=== PATIENT | male | born 1970 | race Caucasian/White ===

== ENCOUNTER 2016-11-25 11:56 | Emergency (ER) | payer MEDICAID ==
[2016-11-25 12:05] VITALS: RESP 18; TEMP 98.6
--- NOTE | 2016-11-25 13:42 | EDPHY ---
H & P Time Seen by Provider: 11/25/16 13:27 HPI/ROS: CHIEF COMPLAINT: toothache, 2 swelling HISTORY OF PRESENT ILLNESS: Patient is a 46-year-old male who presents to the emergency department with ongoing left lower tooth pain. He was seen at [facility] in told that he had a dental abscess. He was started on penicillin 5 days ago. The swelling has not improved. He was concerned so he came to the emergency department. No new pain. No fevers or chills. No difficulty swallowing. No shortness of breath. No neck stiffness. No trismus. REVIEW OF SYSTEMS: My complete review of systems is negative except as mentioned in the HPI. Past Medical/Surgical History: Denies Past surgical history: Denies Social history: Patient denies drugs. Smoking Status: Heavy smoker Physical Exam: 140/77, 87, 18, 93% on room air, 37. GENERAL: No acute distress, alert. HEENT: Eyes normal to inspection, normal pharynx, no signs of dehydration. Patient does have mild left lower mandible swelling. There is no fluctuance. No erythema or warmth. Intraorally I see no redness or swelling. The patient has mild tenderness to palpation over his left lower molars. NECK: No thyromegaly, no lymphadenopathy, supple. No signs of extension or abnormality. RESPIRATORY: Clear to auscultation bilaterally, no rales, rhonchi or wheezing. CVS: Regular rate and rhythm, no rubs, murmurs, or gallops. SKIN: Normal color, no rash. EXTREMITIES: Normal. NEURO/PSYCH: Alert and oriented, normal mood and affect. No obvious cranial nerve deficit. Constitutional: Initial Vital Signs Temperature (C) 37 C 11/25/16 12:03 Heart Rate 87 11/25/16 12:03 Respiratory Rate 18 11/25/16 12:03 Blood Pressure 140/77 H 11/25/16 12:03 O2 Sat (%) 93 11/25/16 12:03 O2 Delivery Mode Room Air Allergies/Adverse Reactions: No Known Allergies Allergy (Verified 02/17/16 12:14) Home Medications: Medication Instructions Recorded Clindamycin HCl [Clindamycin] 300 mg PO TID #30 cap 11/25/16 Pen Vk 500mg (*) 11/25/16 Medical Decision Making ED Course/Re-evaluation: In the emergency department I discussed possible etiologies of the swelling. The patient states that the dentist told him that he had a visible abscess at tooth 18 on x-ray. He will be switched to clindamycin. He will follow up with the dentist to see if he can have his tooth extracted sooner than later. He currently has an appointment for the . Patient was given warnings prior to leaving. He will return with worsening symptoms. Differential Diagnosis: My differential includes but is not limited to dental babar, dental abscess, facial abscess, deep tissue infection, bacteremia, sepsis Departure - Departure Disposition: Home, Routine, Self-Care Clinical Impression: Dental abscess Condition: Good Instructions: Dental Abscess (ED) Additional Instructions: You need close follow-up with the dentist. Keep your appointment with [facility]. See if you can make your appointment sooner. Take your entire course of clindamycin. Antibiotics alone will often not resolved dental abscess. He will need further treatment by the dentist. Referrals: [facility] [Outside] - As per Instructions [facility] [Outside] - As per Instructions Prescriptions: Clindamycin HCl [Clindamycin] 300 mg PO TID #30 cap
[2016-11-25 14:08] VITALS: BP 138/89; PULSE 78; O2SAT 98
== END 2016-11-25 14:08 | disposition home or self-care (01) ==
DX: K04.7 Periapical abscess without sinus (principal); F17.200 Nicotine dependence, unspecified, uncomplicated

== ENCOUNTER 2017-02-22 07:06 | Emergency (ER) | payer MEDICAID ==
[2017-02-22 07:17] VITALS: BP 119/79; PULSE 94; RESP 16; TEMP 98.6; O2SAT 98
[2017-02-22] MEDS ORDERED: CLINDAMYCIN 150 MG CAP PO ONE (07:56)
--- NOTE | 2017-02-22 07:59 | EDPHY ---
H & P Stated Complaint: Bottom tooth ache and swelling. Time Seen by Provider: 02/22/17 07:51 HPI/ROS: CHIEF COMPLAINT: Dental pain and swelling HISTORY OF PRESENT ILLNESS: Patient is a 46-year-old homeless man who comes to the emergency department complaining of a dental abscess. He states that it has been gradually increasing over the last 3 days. He has not had a fever. He does not have any recent dental trauma or facial trauma. He does not have a dentist. No sore throat or sinus congestion. No headache. REVIEW OF SYSTEMS: Constitutional: denies: chills, fever, recent illness, recent injury EENTM: See HPI Respiratory: denies: cough, shortness of breath Cardiac: denies: chest pain, irregular heart rate, lightheadedness, palpitations Gastrointestinal/Abdominal: denies: abdominal pain, diarrhea, nausea, vomiting, blood streaked stools Genitourinary: denies: dysuria, frequency, hematuria, pain Musculoskeletal: denies: joint pain, muscle pain Skin: denies: lesions, rash, jaundice, bruising Neurological: denies: headache, numbness, paresthesia, tingling, dizziness, weakness Hematologic/Lymphatic: denies: blood clots, easy bleeding, easy bruising Immunologic/allergic: denies: HIV/AIDS, transplant EXAM: GENERAL: Well-appearing, well-nourished and in no acute distress. HEAD: Atraumatic, normocephalic. EYES: Pupils equal round and reactive to light, extraocular movements intact, sclera anicteric, conjunctiva are normal. ENT: Very poor dentition, no obvious dental fracture. swelling and pain to left lower mandible, no drainable abscess visible. TMs normal, nares patent, oropharynx clear without exudates. Moist mucous membranes. NECK: Normal range of motion, supple without lymphadenopathy or JVD. LUNGS: Breath sounds clear to auscultation bilaterally and equal. No wheezes rales or rhonchi. HEART: Regular rate and rhythm without murmurs, rubs or gallops. ABDOMEN: Soft, nontender, normoactive bowel sounds. No guarding, no rebound. No masses appreciated. BACK: No CVA tenderness, no spinal tenderness, step-offs or deformities EXTREMITIES: Normal range of motion, no pitting or edema. No clubbing or cyanosis. NEUROLOGICAL: Cranial nerves II through XII grossly intact. Normal speech, normal gait. 5/5 strength, normal movement in all extremities, normal sensation PSYCH: Normal mood, normal affect. SKIN: Warm, dry, normal turgor, no visible rashes or lesions. Source: Patient Exam Limitations: No limitations - Personal History Current Tetanus/Diphtheria Vaccine: Unsure Current Tetanus Diphtheria and Acellular Pertussis (TDAP): Unsure - Medical/Surgical History Hx Asthma: No Hx Chronic Respiratory Disease: No Hx Diabetes: No Hx Cardiac Disease: No Hx Renal Disease: No Hx Cirrhosis: No Hx Alcoholism: No Hx HIV/AIDS: No Hx Splenectomy or Spleen Trauma: No Other PMH: psh: denies. PMH: denies - Family History Significant Family History: No pertinent family hx - Social History Smoking Status: Heavy smoker Alcohol Use: Heavy Drug Use: Marijuana Constitutional: Initial Vital Signs Temperature (C) 37 C 02/22/17 07:13 Heart Rate 94 02/22/17 07:13 Respiratory Rate 16 02/22/17 07:13 Blood Pressure 119/79 02/22/17 07:13 O2 Sat (%) 98 02/22/17 07:13 O2 Delivery Mode Room Air Allergies/Adverse Reactions: No Known Allergies Allergy (Verified 02/22/17 07:16) Home Medications: Medication Instructions Recorded Clindamycin HCl [Clindamycin] 300 mg PO TID #30 cap 02/22/17 Medical Decision Making ED Course/Re-evaluation: Patient has a dental abscess. It is not currently amenable to I and D. I will start him on clindamycin and have him follow up with dental aid. He understands and agrees with this plan. I will treat him with ibuprofen for pain. Differential Diagnosis: Partial list of the Differential diagnosis considered include but were not limited to; dental abscess, dental fracture, and although unlikely based on the history and physical exam, I also considered mandible fracture, lymphadenopathy. I discussed these differential diagnoses and the plan with the patient as well as the usual and expected course. The patient understands that the diagnosis is provisional and that in medicine we are not always correct and that further workup is often warranted. Usual and customary warnings were given. All of the patient's questions were answered. The patient was instructed to return to the emergency department should the symptoms at all worsen or return, otherwise to followup with the physician as we discussed. - Data Points Medications Given: Discontinued Medications Clindamycin (Clindamycin) 300 mg PO EDNOW ONE PRN Reason: Protocol Stop: 02/22/17 07:57 Last Admin: 02/22/17 07:58 Dose: 300 mg Departure - Departure Disposition: Home, Routine, Self-Care Clinical Impression: Dental abscess Condition: Fair Instructions: Dental Abscess (ED) Referrals: [facility] [Outside] - As per Instructions NONE *PRIMARY CARE P,. [Primary Care Provider] - As per Instructions Prescriptions: Clindamycin HCl [Clindamycin] 300 mg PO TID #30 cap
== END 2017-02-22 08:04 | disposition home or self-care (01) ==
DX: K04.7 Periapical abscess without sinus (principal); F17.200 Nicotine dependence, unspecified, uncomplicated

== ENCOUNTER 2017-02-24 12:07 | Inpatient (IN) | payer MEDICAID ==
[2017-02-24] MEDS ORDERED: CLINDAMYCIN 600 MG/DEXTROSE 50 ML IV ONE (12:37)
[2017-02-24] MEDS ORDERED: NS 2,200 ML IV ONE (12:38)
--- NOTE | 2017-02-24 12:41 | EDPHY ---
H & P Stated Complaint: dental abcess l lower molar Time Seen by Provider: 02/24/17 12:29 HPI/ROS: CHIEF COMPLAINT: Facial and neck swelling HISTORY OF PRESENT ILLNESS: 46-year-old homeless male seen emergency department yesterday for complaints of odontalgia and suspected dental abscess was referred to [facility] today. He went to [facility] today was evaluated by dentist referred to the emergency department due to the size of the left submental and submandibular swelling. Patient states that this has progressed overnight. No fever no chills no nausea no vomiting. REVIEW OF SYSTEMS: A ten point review of systems was performed and is negative with the exception of the items mentioned in the HPI PAST MEDICAL & SURGICAL HISTORY: No pertinent medical or surgical history SOCIAL HISTORY:homeless PHYSICAL EXAM (Prior to examination, patient consented to physical exam, hands were washed and my usual and customary physical exam procedures followed) 1) GENERAL: Well-developed, well-nourished, alert and oriented. Appears nontoxic 2) HEAD: Normocephalic, atraumatic 3) HEENT: Pupils equal, round, reactive to light bilaterally. Sclera anicteric. Oropharynx: Poor dentition. Floor of mouth is soft. There is significant asymmetrical soft tissue swelling of the left submental and submandibular spaces with noted induration and a focal area of fluctuance. 4) NECK: Full range of motion, no meningeal signs. 5) LUNGS: Clear auscultation bilaterally 6) HEART: Regular rate and rhythm. 7) ABDOMEN: No guarding, no rebound, no focal tenderness, 8) MUSCULOSKELETAL: No peripheral edema or discoloration. 9) BACK: No CVA tenderness 10) SKIN: No rash, no petechiae. 11) Psychiatric: Patient is oriented X 3, there is no agitation. DIFFERENTIAL DIAGNOSIS: [ in no particular include but limited to cutaneous abscess, Cristiano's angina, dental abscess, necrotizing fasciitis - Personal History Current Tetanus/Diphtheria Vaccine: Yes - Medical/Surgical History Hx Asthma: No Hx Chronic Respiratory Disease: No Hx Diabetes: No Hx Cardiac Disease: No Hx Renal Disease: No Hx Cirrhosis: No Hx Alcoholism: No Hx HIV/AIDS: No Hx Splenectomy or Spleen Trauma: No Other PMH: psh: denies. PMH: denies - Social History Smoking Status: Heavy smoker Constitutional: Initial Vital Signs Temperature (C) 37.7 C 02/24/17 12:12 Heart Rate 107 H 02/24/17 12:12 Respiratory Rate 17 02/24/17 12:12 Blood Pressure 124/80 H 02/24/17 12:12 O2 Sat (%) 95 02/24/17 12:12 O2 Delivery Mode Room Air Allergies/Adverse Reactions: No Known Allergies Allergy (Verified 02/24/17 12:11) Home Medications: Medication Instructions Recorded Clindamycin HCl [Clindamycin] 300 mg PO TID #30 cap 02/22/17 Medical Decision Making - Diagnostics Imaging Results: Imaging Impressions Neck CT 02/24/17 12:38 Impression: 3.8-cm complex abscess just inferior to the mid mandible contiguous with a 1-cm abscess medial to the mid mandible. Origin appears to be from odontogenic disease of the second molar left mandible with cortical breakthrough medially. Results called and discussed with Fady Leal PA-C, on February 24, 2017 at 1411 hours. Images reviewed by myself and discussed with the radiologist ED Course/Re-evaluation: 12:40 p.m.: Discussed case Dr. Adrian in the ER. Plan will be admission after imaging studies and administration of IV clindamycin. 1:50 p.m.: Re-evaluation patient is comfortable. Patient meets criteria for sepsis however not severe sepsis. 2:25 p.m.: Phone consultation with on-call surgery Dr. David Coulter who will consult for oral surgery, discussed the imaging results 2:37 p.m.: Phone call from Dr. Coulter who will come to the ER to evaluate patient possibly performed dental extraction in the ER 2:41 p.m.: Phone consultation with hospitalist Dr. suarez will admit patient - Data Points Laboratory Results: Laboratory Results 02/24/17 12:50 02/24/17 12:50 02/24/17 02/24/17 02/24/17 12:50 12:50 12:50 WBC 18.43 10^3/uL H 10^3/uL (3.80-9.50) RBC 4.72 10^6/uL 10^6/uL (4.40-6.38) Hgb 14.6 g/dL g/dL (13.7-17.5) Hct 41.8 % % (40.0-51.0) MCV 88.6 fL fL (81.5-99.8) MCH 30.9 pg pg (27.9-34.1) MCHC 34.9 g/dL g/dL (32.4-36.7) RDW 13.1 % % (11.5-15.2) Plt Count 272 10^3/uL 10^3/uL (150-400) MPV 11.2 fL fL (8.7-11.7) Neut % (Auto) 80.7 % H % (39.3-74.2) Lymph % (Auto) 9.0 % L % (15.0-45.0) [place] % (Auto) 9.6 % % (4.5-13.0) Eos % (Auto) 0.1 % L % (0.6-7.6) Baso % (Auto) 0.2 % L % (0.3-1.7) Nucleat RBC Rel Count 0.0 % % (0.0-0.2) Absolute Neuts (auto) 14.89 10^3/uL H 10^3/uL (1.70-6.50) Absolute Lymphs (auto) 1.65 10^3/uL 10^3/uL (1.00-3.00) Absolute Monos (auto) 1.77 10^3/uL H 10^3/uL (0.30-0.80) Absolute Eos (auto) 0.01 10^3/uL L 10^3/uL (0.03-0.40) Absolute Basos (auto) 0.03 10^3/uL 10^3/uL (0.02-0.10) Absolute Nucleated RBC 0.00 10^3/uL 10^3/uL (0-0.01) Immature Gran % 0.4 % % (0.0-1.1) Immature Gran # 0.08 10^3/uL 10^3/uL (0.00-0.10) PT 14.2 SEC SEC (12.0-15.0) INR 1.11 (0.83-1.16) APTT 31.3 SEC SEC (23.0-38.0) VBG Lactic Acid Sodium 134 mEq/L mEq/L (134-144) Potassium 4.2 mEq/L mEq/L (3.5-5.2) Chloride 96 mEq/L L mEq/L (97-110) Carbon Dioxide 26 mEq/l mEq/l (22-31) Anion Gap 12 mEq/L mEq/L (8-16) BUN 11 mg/dL mg/dL (7-23) Creatinine 0.6 mg/dL L mg/dL (0.7-1.3) Estimated GFR > 60 Glucose 100 mg/dL mg/dL (70-100) Calcium 9.6 mg/dL mg/dL (8.5-10.4) Total Bilirubin 0.9 mg/dL mg/dL (0.1-1.4) 02/24/17 12:50 WBC RBC Hgb Hct MCV MCH MCHC RDW Plt Count MPV Neut % (Auto) Lymph % (Auto) [place] % (Auto) Eos % (Auto) Baso % (Auto) Nucleat RBC Rel Count Absolute Neuts (auto) Absolute Lymphs (auto) Absolute Monos (auto) Absolute Eos (auto) Absolute Basos (auto) Absolute Nucleated RBC Immature Gran % Immature Gran # PT INR APTT VBG Lactic Acid 1.1 mmol/L mmol/L (0.7-2.1) Sodium Potassium Chloride Carbon Dioxide Anion Gap BUN Creatinine Estimated GFR Glucose Calcium Total Bilirubin Medications Given: Discontinued Medications Clindamycin Phosphate/Dextrose (Cleocin 600 Mg (Premix)) 50 mls @ 100 mls/hr IV EDNOW ONE PRN Reason: Protocol Stop: 02/24/17 13:06 Last Admin: 02/24/17 13:23 Dose: 50 mls Sodium Chloride (Ns) 2,200 mls @ 4,400 mls/hr 30 ml/kg infuse over 30 min ( 2200 ml) IV EDNOW ONE Stop: 02/24/17 13:07 Last Admin: 02/24/17 13:15 Dose: 2,200 mls Departure - Departure Disposition: [facility] Clinical Impression: Submandibular abscess, Dental abscess Condition: Fair Referrals: NONE *PRIMARY CARE P,. [Primary Care Provider] - As per Instructions
[2017-02-24 13:03] LABS: % IMMATURE GRANULYOCYTES 0.4 % (0.0-1.1); ABSOLUTE IMMATURE GRANULOCYTES 0.08 10^3/uL (0.00-0.10); ADD DIFF? NO; ADD MORPH? NO; ADD SCAN? NO; ATYPICAL LYMPHOCYTE FLAG 0 (0-99); FRAGMENT RBC FLAG 0 (0-99); HEMATOCRIT 41.8 % (40.0-51.0); HEMOGLOBIN 14.6 g/dL (13.7-17.5); LEFT SHIFT FLG 0 (0-99); LIPEMIA HEMOLYSIS FLAG 90 (0-99); MEAN CELL HEMOGLOBIN 30.9 pg (27.9-34.1); MEAN CELL HEMOGLOBIN CONCENTR. 34.9 g/dL (32.4-36.7); MEAN CELL VOLUME 88.6 fL (81.5-99.8); MEAN PLATELET VOLUME 11.2 fL (8.7-11.7); PLATELET CLUMPS FLAG 0 (0-99); PLATELET COUNT 272 10^3/uL (150-400); RED BLOOD CELL COUNT 4.72 10^6/uL (4.40-6.38); RED CELL DISTRIBUTION WIDTH 13.1 % (11.5-15.2)
[2017-02-24 13:14] LABS: INR 1.11 (0.83-1.16); PROTIME(PATIENT) 14.2 SEC (12.0-15.0)
[2017-02-24 13:15] LABS: APTT 31.3 SEC (23.0-38.0)
[2017-02-24 13:18] LABS: ANION GAP 12 mEq/L (8-16); BILIRUBIN,TOTAL 0.9 mg/dL (0.1-1.4); CALCIUM 9.6 mg/dL (8.5-10.4); CARBON DIOXIDE 26 mEq/l (22-31); CHLORIDE 96 mEq/L (97-110); CREATININE 0.6 mg/dL (0.7-1.3); GLOMERULAR FILTRATION RATE > 60; GLUCOSE 100 mg/dL (70-100); POTASSIUM 4.2 mEq/L (3.5-5.2); SODIUM 134 mEq/L (134-144)
[2017-02-24] MEDS ORDERED: ACETAMINOPHEN 325 MG TAB PO PRN (15:18)
[2017-02-24] MEDS ORDERED: ONDANSETRON DISINTEGRATING 4 MG TAB PO PRN (15:18)
[2017-02-24] MEDS ORDERED: ONDANSETRON 4 MG/2 ML VIAL IVP PRN (15:18)
[2017-02-24] MEDS ORDERED: LACTULOSE 20 GM/30 ML UDCUP PO PRN (15:20)
[2017-02-24] MEDS ORDERED: POLYETHYLENE GLYCOL 3350 17 GM PKT PO PRN (15:20)
[2017-02-24] MEDS ORDERED: LIDOCAINE 2% VISCOUS 15 ML UDCUP PO PRN (15:20)
[2017-02-24] MEDS ORDERED: BISACODYL 10 MG SUPP PR PRN (15:20)
[2017-02-24] MEDS ORDERED: MAGNESIUM HYDROXIDE 30 ML UDCUP PO PRN (15:20)
--- NOTE | 2017-02-24 15:25 | PDGENHP ---
History and Physical - Chief Complaint Face swelling - History of Present Illness PCP: [facility] HPI: 46-year-old male presenting with acute face swelling located over the left mandible and mid submental area with associated pustulant drainage and onset of symptoms 3 days ago. Duration has been persistent thereafter and particular worsening over the last 24 hours. He was seen in the emergency department 2 days ago and initiated oral clindamycin but this did not result in any observable reduction in swelling. The patient began experiencing pustulant drainage while in our emergency department and this did alleviate the swelling significantly. He was seen at [facility] on the day of this presentation and they recommended that he come immediately to the emergency department. Prior to his onset of symptoms, the patient reports he had otherwise been feeling well and he reports no trauma to the affected area. He reports that he may have had a pimple or bug bite at the affected area. History Information - Allergies/Home Medication List Allergies/Adverse Reactions: No Known Allergies Allergy (Verified 02/24/17 12:11) I have personally reviewed and updated: family history, medical history, social history, surgical history - Past Medical History no pertinent PMH - Surgical History Reports: no pertinent surgical hx - Family History Additional family history: No family history of any facial or head and neck cancer - Social History Smoking Status: Heavy smoker Alcohol Use: Other (Regular alcohol user, never experienced acute alcohol withdrawal) Drug Use: None Additional social history: Homeless, resides in shelters Review of Systems ROS: 10pt was reviewed & negative except for what was stated in HPI & below Skin: Reports: other (Soft tissue edema over the neck and left mandible) Physical Exam Temp Pulse Resp BP Pulse Ox 37.4 C 76 16 131/74 H 96 02/24/17 13:43 02/24/17 13:43 02/24/17 13:43 02/24/17 13:43 02/24/17 13:43 Constitutional: no apparent distress, not in pain, No uncomfortable Eyes: PERRL, anicteric sclera, EOMI Ears, Nose, Mouth, Throat: moist mucous membranes, hearing normal, ears appear normal, poor dentition, other (No visible abscess in the left mandibular area but it is difficult to visualize secondary to soft tissue swelling on a external side of his left cheek) Cardiovascular: regular rate and rhythym, no murmur, rub, or gallop, No edema Respiratory: no respiratory distress, no rales or rhonchi, clear to auscultation Gastrointestinal: normoactive bowel sounds, soft, non-tender abdomen, no palpable masses Skin: other (Left facial swelling with open pustulant hole, nontender) Musculoskeletal: other (Full range of motion of neck without any pain) Neurologic: AAOx3, sensation intact bilaterally, No asterixes Psychiatric: interacting appropriately, not anxious, not encephalopathic, thought process linear Lab Data & Imaging Review 02/24/17 12:50 02/24/17 12:50 WBC 18.43 10^3/uL (3.80-9.50) H 02/24/17 12:50 RBC 4.72 10^6/uL (4.40-6.38) 02/24/17 12:50 Hgb 14.6 g/dL (13.7-17.5) 02/24/17 12:50 Hct 41.8 % (40.0-51.0) 02/24/17 12:50 MCV 88.6 fL (81.5-99.8) 02/24/17 12:50 MCH 30.9 pg (27.9-34.1) 02/24/17 12:50 MCHC 34.9 g/dL (32.4-36.7) 02/24/17 12:50 RDW 13.1 % (11.5-15.2) 02/24/17 12:50 Plt Count 272 10^3/uL (150-400) 02/24/17 12:50 MPV 11.2 fL (8.7-11.7) 02/24/17 12:50 Neut % (Auto) 80.7 % (39.3-74.2) H 02/24/17 12:50 Lymph % (Auto) 9.0 % (15.0-45.0) L 02/24/17 12:50 [place] % (Auto) 9.6 % (4.5-13.0) 02/24/17 12:50 Eos % (Auto) 0.1 % (0.6-7.6) L 02/24/17 12:50 Baso % (Auto) 0.2 % (0.3-1.7) L 02/24/17 12:50 Nucleat RBC Rel Count 0.0 % (0.0-0.2) 02/24/17 12:50 Absolute Neuts (auto) 14.89 10^3/uL (1.70-6.50) H 02/24/17 12:50 Absolute Lymphs (auto) 1.65 10^3/uL (1.00-3.00) 02/24/17 12:50 Absolute Monos (auto) 1.77 10^3/uL (0.30-0.80) H 02/24/17 12:50 Absolute Eos (auto) 0.01 10^3/uL (0.03-0.40) L 02/24/17 12:50 Absolute Basos (auto) 0.03 10^3/uL (0.02-0.10) 02/24/17 12:50 Absolute Nucleated RBC 0.00 10^3/uL (0-0.01) 02/24/17 12:50 Immature Gran % 0.4 % (0.0-1.1) 02/24/17 12:50 Immature Gran # 0.08 10^3/uL (0.00-0.10) 02/24/17 12:50 PT 14.2 SEC (12.0-15.0) 02/24/17 12:50 INR 1.11 (0.83-1.16) 02/24/17 12:50 APTT 31.3 SEC (23.0-38.0) 02/24/17 12:50 VBG Lactic Acid 1.1 mmol/L (0.7-2.1) 02/24/17 12:50 Sodium 134 mEq/L (134-144) 02/24/17 12:50 Potassium 4.2 mEq/L (3.5-5.2) 02/24/17 12:50 Chloride 96 mEq/L (97-110) L 02/24/17 12:50 Carbon Dioxide 26 mEq/l (22-31) 02/24/17 12:50 Anion Gap 12 mEq/L (8-16) 02/24/17 12:50 BUN 11 mg/dL (7-23) 02/24/17 12:50 Creatinine 0.6 mg/dL (0.7-1.3) L 02/24/17 12:50 Estimated GFR > 60 02/24/17 12:50 Glucose 100 mg/dL (70-100) 02/24/17 12:50 Calcium 9.6 mg/dL (8.5-10.4) 02/24/17 12:50 Total Bilirubin 0.9 mg/dL (0.1-1.4) 02/24/17 12:50 Visualized and Interpreted imaging results: Yes Interpretation: Neck CT demonstrating 3.8 cm mid mandibular abscess as well as 1 cm area medial to that Assessment & Plan Assessment: 46-year-old male presents with acute odontogenic abscess Plan: 1. Odontogenic abscess. Acute, new problem this provider, further workup is indicated. Purlent w/ leukocytosis, mainstay of treatment is surgical drainage , but given the potential for oral iza, will treat with IV clindamycin -patient has failed outpatient oral therapy as evidenced by outside records from 02/22/[address] Hung, documented the patient received appropriate ibuprofen and clindamycin orally, he has not clinically improved since that time -discussed with Lamont Leal, emergency department provider, he has informed me that Dr. Coulter has been consulted and will evaluate the patient to determine whether incision and drainage or D for oral surgery with tooth extraction is required, will keep NPO -continue IV clindamycin 600 mg q.8 hours -IV fluids, pain medications, bowel regimen -send blood cultures, send wound cultures once available, tailor antibiotics based on results -wound care consult as well as swallow consult placed -currently not demonstrating any evidence of airway compromise -continue monitor CBC and fever curve Diet. NPO with IV fluids Prophylaxis. Low risk patient, SCDs Code. Full, patient does not want to have an individual as his MPOA but would rather have the Hospital designate a physician or team of providers as his health proxy, he reports that if he is in a coma he would not want life- sustaining measures at that point Disposition. Anticipated discharge is 02/25/2017, pending further workup as outlined above
[2017-02-24] MEDS ORDERED: NS 1,000 ML IV SCH (15:30)
[2017-02-24] MEDS ORDERED: LIDOCAINE 1% 30 ML SDV ONE (16:05)
[2017-02-24] MEDS ORDERED: LIDO/EPI 2%** Not for Epidural 20 ML MDV ONE (16:14)
[2017-02-24] MEDS ORDERED: MIDAZOLAM 2 MG/2 ML VIAL ONE (16:20)
[2017-02-24] MEDS ORDERED: ROCURONIUM 50 MG/5 ML VIAL ONE (16:22)
[2017-02-24] MEDS ORDERED: ONDANSETRON 4 MG/2 ML VIAL ONE (16:22)
[2017-02-24] MEDS ORDERED: DEXAMETHASONE 4 MG/ML VIAL ONE (16:22)
[2017-02-24] MEDS ORDERED: LIDOCAINE 2% 5 ML SDV ONE (16:23)
[2017-02-24] MEDS ORDERED: fentaNYL 100 MCG/2 ML INJ ONE (16:23)
[2017-02-24] MEDS ORDERED: PROPOFOL 200 MG/20 ML VIAL ONE (16:23)
[2017-02-24] MEDS ORDERED: SUGAMMADEX SODIUM 200 MG/2 ML VIAL IVP ONE (16:50)
[2017-02-24] MEDS ORDERED: BUPIVACAINE/EPI 0.25% 30 ML SDV ONE (16:59)
--- NOTE | 2017-02-24 17:37 | SOAPPROG ---
SOAP Progress Note Assessment/Plan: s: Asked to consult on this 46 yo male with long standing history of intermittent swelling of his left mandible. Swelling became worse today, saw a dentist who sent him to the ED. Patient is NPO since 9 am (coffee) no other comorbidities o: submandibular and buccal space swelling with spontaneous drainage from the left submandibular space, no palatal drape or sublingual swelling, CT scan shows submandibular and submental space abscess with teeth # 19 and 20 communicating with abscess, also with caries and periapical radiolucency around #18. a/p: plan to take to OR for I and D of left submandibular and submental space and extraction of # 18, 19 and 20 admitting to hospitalist service, will take cultures in OR to guide abx tx. 02/24/17 17:32 Objective: Vital Signs Temp Pulse Resp BP Pulse Ox 37.4 C 93 16 127/82 H 99 02/24/17 15:57 02/24/17 15:57 02/24/17 15:57 02/24/17 15:57 02/24/17 15:57 02/23/17 02/24/17 02/25/17 05:59 05:59 05:59 Intake Total 2200 Output Total 800 Balance 1400 PT 14.2 SEC (12.0-15.0) 02/24/17 12:50 INR 1.11 (0.83-1.16) 02/24/17 12:50 ICD10 Worksheet Patient Problems: Problems Problem Status Onset Submandibular abscess Acute Dental abscess Acute
[2017-02-24] MEDS: NS W/ 20 KCl/L 1,000 ML IV SCH (18:20)
[2017-02-24] MEDS: NICOTINE 21 MG/24 HR PATCH TD PRN (18:33)
[2017-02-24] MEDS: SENNOSIDES/DOCUSATE SODIUM TAB PO SCH (22:18)
[2017-02-24] MEDS: CLINDAMYCIN 600 MG/DEXTROSE 50 ML IV SCH (22:19)
[2017-02-25] MEDS: NS W/ 20 KCl/L 1,000 ML IV SCH (01:54)
[2017-02-25] MEDS: CLINDAMYCIN 600 MG/DEXTROSE 50 ML IV SCH ×2 (05:13→15:40)
[2017-02-25 05:28] LABS: % IMMATURE GRANULYOCYTES 0.4 % (0.0-1.1); ABSOLUTE IMMATURE GRANULOCYTES 0.05 10^3/uL (0.00-0.10); ADD DIFF? NO; ADD MORPH? NO; ADD SCAN? NO; ATYPICAL LYMPHOCYTE FLAG 0 (0-99); FRAGMENT RBC FLAG 0 (0-99); HEMATOCRIT 40.4 % (40.0-51.0); HEMOGLOBIN 13.3 g/dL (13.7-17.5); LEFT SHIFT FLG 10 (0-99); LIPEMIA HEMOLYSIS FLAG 80 (0-99); MEAN CELL HEMOGLOBIN 29.8 pg (27.9-34.1); MEAN CELL HEMOGLOBIN CONCENTR. 32.9 g/dL (32.4-36.7); MEAN CELL VOLUME 90.4 fL (81.5-99.8); MEAN PLATELET VOLUME 10.7 fL (8.7-11.7); PLATELET CLUMPS FLAG 0 (0-99); PLATELET COUNT 251 10^3/uL (150-400); RED BLOOD CELL COUNT 4.47 10^6/uL (4.40-6.38); RED CELL DISTRIBUTION WIDTH 13.2 % (11.5-15.2)
[2017-02-25 05:43] LABS: ALANINE AMINOTRANSFERASE 27 IU/L (21-72); ALBUMIN 3.4 g/dL (3.5-5.0); ALKALINE PHOSPHATASE 60 IU/L (38-126); ANION GAP 9 mEq/L (8-16); ASPARTATE AMINOTRANSFERASE 22 IU/L (17-59); BILIRUBIN,TOTAL 0.6 mg/dL (0.1-1.4); CARBON DIOXIDE 27 mEq/l (22-31); CHLORIDE 106 mEq/L (97-110); CREATININE 0.6 mg/dL (0.7-1.3); GLOMERULAR FILTRATION RATE > 60; GLUCOSE 117 mg/dL (70-100); POTASSIUM 4.7 mEq/L (3.5-5.2); SODIUM 142 mEq/L (134-144); TOTAL PROTEIN 6.1 g/dL (6.3-8.2)
--- NOTE | 2017-02-25 10:07 | HOSPPROG ---
Hospitalist Progress Note Assessment/Plan: 46M homeless male, tobacco abuse, no other PMH, presents with at least 3 days of facial swelling located over L mandible and mid submental area with associated purulent drainage. Saw someone at [facility] yesterday which was day of admission who recommended ED evaluation #. Odontogenic abscess -Purlent w/ leukocytosis, mainstay of treatment is surgical drainage, but given the potential for oral iza, being treated with IV clindamycin -oral surgery Dr. Coulter has I&D of submandibular/submental area with teeth extractions await oral surgery recs regarding when to remove drain/postop care -abscess cultures with no growth after 18 hours and BC pending -pt AFeb and WBC trending down #. Prophylaxis. Low risk patient, SCDs Plan: Await culture data Subjective: Reports no pain. Appetite and swallowing feel normal. Objective: Vital Signs Temp Pulse Resp BP Pulse Ox 97.7 F 78 16 101/71 94 02/25/17 08:00 02/25/17 08:00 02/25/17 08:00 02/25/17 08:00 02/25/17 08:00 Microbiology 02/24/17 16:47 Gram Stain - Final Neck - Eswab Laboratory Results 02/25/17 05:10 02/25/17 05:10 02/24/17 02/25/17 02/26/17 05:59 05:59 05:59 Intake Total 3450 Output Total 3410 Balance 40 PT 14.2 SEC (12.0-15.0) 02/24/17 12:50 INR 1.11 (0.83-1.16) 02/24/17 12:50 - Physical Exam Constitutional: no apparent distress Eyes: anicteric sclera Ears, Nose, Mouth, Throat: hearing normal Cardiovascular: regular rate and rhythym Respiratory: no respiratory distress Skin: other (L neck with draining/suturing visible though neck is bandaged) ICD10 Worksheet Patient Problems: Problems Problem Status Onset Dental abscess Acute Submandibular abscess Acute
[2017-02-25] MEDS: SENNOSIDES/DOCUSATE SODIUM TAB PO SCH ×2 (10:41→20:29)
--- NOTE | 2017-02-25 13:37 | SOAPPROG ---
SOAP Progress Note Assessment/Plan: s:POD # 1 s/p I and D of left SM space with extraction of multiple teeth. Patient improved overnight, wbc trending down, patient states pain is well controlled. exam: steve drains in neck are still productive, mvo 30mm, extraction sites hwl. a/p: Improving following drainage of abscess with productive drains. 1- continue abx 2- drain to stay in place until no longer productive- will check tomorrow in afternoon. 3- continue to monitor wbc count in hospital. 4- If drains no longer productive tomorrow and continues to improve can consider dc planning with follow up in my office. Call with questions [phone] 02/24/17 17:32 02/25/17 13:32 Objective: Vital Signs Temp Pulse Resp BP Pulse Ox 37.1 C 81 18 118/69 95 02/25/17 11:29 02/25/17 11:29 02/25/17 11:29 02/25/17 11:29 02/25/17 11:29 Microbiology 02/24/17 16:47 Gram Stain - Final Neck - Eswab Laboratory Results 02/25/17 05:10 02/25/17 05:10 02/24/17 02/25/17 02/26/17 05:59 05:59 05:59 Intake Total 3450 2167 Output Total 3410 Balance 40 2167 PT 14.2 SEC (12.0-15.0) 02/24/17 12:50 INR 1.11 (0.83-1.16) 02/24/17 12:50 ICD10 Worksheet Patient Problems: Problems Problem Status Onset Dental abscess Acute Submandibular abscess Acute
[2017-02-25] MEDS: ERTAPENEM 1 GM in NS 100 ML IV SCH (15:12)
--- NOTE | 2017-02-25 15:52 | GCON ---
[f rep st] CONSULTATION INFECTIOUS DISEASE CONSULTATION DATE OF CONSULTATION: 02/25/2017 REFERRING PHYSICIAN: Sukumar Tucker MD REASON FOR CONSULTATION: Left submandibular abscess/odontogenic infection for further evaluation an d management. CHIEF COMPLAINT: Acute swelling of the left jaw. HISTORY OF PRESENT ILLNESS: This is a 46-year-old male with no significant past medical history, wh o states that about 4 days ago he developed acute swelling of the left jaw and face with some draina ge coming out. He states that he went to the emergency department at that time and was given oral c lindamycin, but it did not improve and it actually felt worse with increased pain, pressure, and swe lling. He denied any fevers or shaking chills at the time. He went to [facility]; however, the y sent him here for further evaluation. He has not really complained of pain involving his teeth or gums prior to this in any significant manner, although there might have been mild pain that he has had for a while. In the ER a neck CT was done and showed a 3.8 cm complex abscess just inferior to the mid mandible, contiguous with a 1 cm abscess medial to the mid mandible. He was seen by Oral [facility]ano joe, who extracted #18, #19, #20, and did an I and D of the left submandibular and submental absce ss. Cultures were sent and are showing 1+ polys, 1+ mononuclear cells, and rare gram-negative rods. Currently, there is no growth. Blood cultures in 2 sets are pending. He did come in with a leuko cytosis of 18,000 with a left shift. Did have a low-grade temperature as high as 37.9 on admission. He was tachycardic at 107, with an elevated respiratory rate as well. He was started on clindamyc in 600 mg q.8 hours. Infectious Disease is now consulted for further evaluation and opinion regardi ng the above. REVIEW OF SYSTEMS: GENERAL: Denied any fever or shaking chills. HEENT: Head: No headaches. Eye s: No change in vision. ENT: No sore throat, difficulty swallowing, ear pain, or ear drainage, bu t he is unable to really open his mouth wide. CARDIOVASCULAR: Denies any chest pain or rapid heart beat. RESPIRATORY: Denies any shortness of breath, cough, or sputum production. ABDOMEN: No naus ea, vomiting, abdominal pain, or diarrhea. : No dysuria or hematuria. BACK: No back pain or fl ank pain. MUSCULOSKELETAL: No complaints of pain in the joints or muscles. EXTREMITIES: Denies a ny lower extremity edema. SKIN: No other rashes or open wounds. Rest of 10-point review of system s essentially negative except for above. PAST MEDICAL HISTORY: No significant past medical history. SURGICAL HISTORY: No significant past surgical history. FAMILY HISTORY: Significant for diabetes and hypertension. ALLERGIES: No known drug allergies. SOCIAL HISTORY: He smokes 1 pack per day. He drinks about 4-6 beers a day. Denies illicit drug us age. He is homeless and resides in between shelters. MEDICATIONS: As per DEC. PHYSICAL EXAMINATION: VITAL SIGNS: Temperature 37.1, pulse is 81, respiratory rate is 18, blood pr essure 118/69, saturation 95% on room air. GENERAL: Patient is resting in bed. No acute respirato ry distress. Awake, alert, and oriented x3. HEENT: Head is normocephalic, atraumatic. Eyes: Pup ils are equal, round, reactive to light. There is no conjunctival injection. No petechiae noted. Oropharynx exam is limited as the patient is not able to open his mouth wide, but he does have sever al bad teeth noted. Face: He has swelling over the left lower face and jawline into the neck. It is quite indurated. It is not very tender to palpate. He has a Rober drain noted with bloody piter inage coming out of it. CARDIOVASCULAR: S1, S2. Regular rate and rhythm. No murmurs appreciated. RESPIRATORY: Clear to auscultate bilaterally. No rhonchi or rales appreciated. ABDOMEN: Positi ve bowel sounds in all quadrants. Soft, nontender, nondistended. No obvious organomegaly appreciat ed. EXTREMITIES: No lower extremity edema. MUSCULOSKELETAL: No obvious joint pain or pain on pal pation or joint effusions. SKIN: No other rashes noted. LABORATORY DATA: White blood cell count is 11.4, hemoglobin 13.3, platelets are 251, neutrophil cou nt is 85%. Venous lactic acid 1.1. Sodium 142, potassium 4.7, chloride 106, bicarb 27, BUN is 8, c reatinine 0.6. LFTs are within the normal range. Microbiology as stated above. Imaging results romero ve all been reviewed by me as stated above. ASSESSMENT: Odontogenic infection with left submandibular and submental abscess. PLAN: Status post extraction of multiple teeth and I and D of abscess. Cultures are in progress bu t are showing a gram-negative michelle in the Gram stain. The patient is currently on clindamycin, which generally does not have good gram-negative michelle coverage. We will change to Invanz therapy while cu ltures have a chance to mature further. Rober drain is in place with still significant drainage f rom it, as well as significant swelling above and below. Monitor labs closely. We will continue th is for now. Thank you very much for the opportunity to care for your patient in consultation. /[id number]/MODL
[2017-02-25] MEDS: NICOTINE 21 MG/24 HR PATCH TD PRN (17:11)
[2017-02-26] MEDS: oxyCODONE IR 5 MG TAB PO PRN ×3 (08:38→21:24)
[2017-02-26] MEDS: ERTAPENEM 1 GM in NS 100 ML IV SCH (10:15)
--- NOTE | 2017-02-26 10:18 | HOSPPROG ---
Hospitalist Progress Note Assessment/Plan: 46M homeless male, tobacco abuse, no other PMH, presents with at least 3 days of facial swelling located over L mandible and mid submental area with associated purulent drainage. Saw someone at [facility] prior to his admission. It was recommended that he come to the emergency room for further evaluation. Today is my 1st encounter with the patient. Chart reviewed. #. Left submandibular abscess/ Odontogenic infection status post I and D of the left submandibular space with teeth extraction ( 18,19,20) appreciate Dr Coulter on Invanz #. Prophylaxis. Low risk patient, SCDs Subjective: Arik is feeling well/ no complaints. Objective: Vital Signs Temp Pulse Resp BP Pulse Ox 36.2 C 71 16 104/77 94 02/26/17 07:37 02/26/17 07:37 02/26/17 07:37 02/26/17 07:37 02/26/17 07:37 PT 14.2 SEC (12.0-15.0) 02/24/17 12:50 INR 1.11 (0.83-1.16) 02/24/17 12:50 - Physical Exam Constitutional: no apparent distress, unkempt Eyes: PERRL Ears, Nose, Mouth, Throat: hearing normal Cardiovascular: regular rate and rhythym Respiratory: no respiratory distress Skin: warm, other (left jaw area w steve in place/no drainage noted) Musculoskeletal: full muscle strength Neurologic: AAOx3 Psychiatric: interacting appropriately, not anxious ICD10 Worksheet Patient Problems: Problems Problem Status Onset Dental abscess Acute Submandibular abscess Acute
[2017-02-26] MEDS: SENNOSIDES/DOCUSATE SODIUM TAB PO SCH ×2 (11:19→21:24)
--- NOTE | 2017-02-26 13:50 | SOAPPROG ---
SOAP Progress Note Assessment/Plan: s:pod #2 s/p I and D of left neck abscess doing better today. DRains minimally productive. Responding well on Clindamycin. Pain well controlled o: drains minimally productive, swelling markedly decreased, healing intraorally wnl a.p: improving, DC drains, continue heat to side of face to facilitate drainage , ok to dc to home/senior living from my perspective. Can follow up in my office if not improving daily. recommend bacitracin to wounds on side of face , dc with pain meds and continue the oral clindamycin he started 4 days ago. 02/26/17 13:46 Objective: Vital Signs Temp Pulse Resp BP Pulse Ox 36.4 C 66 18 98/65 L 95 02/26/17 11:17 02/26/17 11:17 02/26/17 11:17 02/26/17 11:17 02/26/17 11:17 PT 14.2 SEC (12.0-15.0) 02/24/17 12:50 INR 1.11 (0.83-1.16) 02/24/17 12:50 ICD10 Worksheet Patient Problems: Problems Problem Status Onset Dental abscess Acute Submandibular abscess Acute
--- NOTE | 2017-02-26 17:46 | PCMIDPN ---
Assessment/Plan: Assessment/Plan: * left submandibular abscess status post drainage and dental extraction: Clinically improved post drainage. Cultures are no growth but likely etiology is mixed odontogenic iza. Continue ertapenem with probable transition to oral Augmentin tomorrow to complete course of therapy. 02/26/17 17:44 Subjective: Patient feels much better. Tolerating oral intake. Range of motion of jaw improved. Objective: Vital Signs Temp Pulse Resp BP Pulse Ox 36.8 C 75 18 98/65 L 73 L 02/26/17 15:28 02/26/17 15:28 02/26/17 15:28 02/26/17 15:28 02/26/17 15:28 Ertapenem # 2 Abscess cultures no growth to date with gram-negative rods on Gram stain - Physical Exam General Appearance: alert, no apparent distress EENT: other ( abscess cavity packed on left side ; surrounding induration present ; no cellulitis) Respiratory: lungs clear, No respiratory distress Cardiac/Chest: regular rate, rhythm, No systolic murmur Abdomen: non-tender, No distended ICD10 Worksheet Patient Problems: Problems Problem Status Onset Dental abscess Acute Submandibular abscess Acute
[2017-02-26] MEDS: NICOTINE 21 MG/24 HR PATCH TD PRN (17:57)
[2017-02-26] MEDS: IBUPROFEN 200 MG TAB PO PRN (21:24)
[2017-02-27 07:53] VITALS: BP 107/79; PULSE 67; RESP 14; TEMP 97.7; O2SAT 94
[2017-02-27] MEDS: ERTAPENEM 1 GM in NS 100 ML IV SCH (08:39)
[2017-02-27] MEDS: SENNOSIDES/DOCUSATE SODIUM TAB PO SCH (08:41)
[2017-02-27] MEDS: IBUPROFEN 200 MG TAB PO PRN (09:01)
[2017-02-27] MEDS: oxyCODONE IR 5 MG TAB PO PRN (09:02)
--- NOTE | 2017-02-27 10:49 | HOSPPROG ---
Hospitalist Progress Note Assessment/Plan: 46M homeless male, tobacco abuse, no other PMH, presents with at least 3 days of facial swelling located over L mandible and mid submental area with associated purulent drainage. Saw someone at [facility] prior to his admission. It was recommended that he come to the emergency room for further evaluation. #. Left submandibular abscess/ Odontogenic infection status post I and D of the left submandibular space with teeth extraction ( 18,19,20) appreciate Dr Coulter on Invanz likely dc on Augmentin/ has a script for clindamycin #. Prophylaxis. Low risk patient, SCDs #. 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 alcohol use/ no s/sx of withdrawal #.Plan: dc later today after ID sees. Subjective: Arik is feeling well/ no complaints/ wants to go. Objective: Vital Signs Temp Pulse Resp BP Pulse Ox 36.5 C 67 14 107/79 94 02/27/17 07:51 02/27/17 07:51 02/27/17 07:51 02/27/17 07:51 02/27/17 07:51 02/26/17 02/27/17 02/28/17 05:59 05:59 05:59 Intake Total 1600 Output Total 450 Balance 1150 PT 14.2 SEC (12.0-15.0) 02/24/17 12:50 INR 1.11 (0.83-1.16) 02/24/17 12:50 - Physical Exam Constitutional: unkempt Eyes: PERRL Ears, Nose, Mouth, Throat: hearing normal Cardiovascular: regular rate and rhythym Respiratory: no respiratory distress Gastrointestinal: normoactive bowel sounds Skin: warm Musculoskeletal: full muscle strength Neurologic: AAOx3 Psychiatric: interacting appropriately ICD10 Worksheet Patient Problems: Problems Problem Status Onset Dental abscess Acute Submandibular abscess Acute
--- NOTE | 2017-02-27 11:59 | PCMIDPN ---
Assessment/Plan: Assessment/Plan: 1. Odontogenic infection with submandibular and submental abscess: - s/p I & D and teeth extraction on 02/24/17 - Cx with ngtd, but with GNR on GS - blood cx ngtd - INitially on clinda, currently on invanz - good clinical improvment with above combine surgical and medical treatment modalities -can go home today on augmentin 875mg q12- x 14 days. - f/u in office on 03/07/17 at 1:30pm. -care coordinated with hospitalist team. meds invanz 02/25/17 Subjective: afebril.e denies sob, able to open mouth a little bit better now. able to eat and drink. denies abd pain or diarrhea. Objective: Vital Signs Temp Pulse Resp BP Pulse Ox 36.5 C 67 14 107/79 94 02/27/17 07:51 02/27/17 07:51 02/27/17 07:51 02/27/17 07:51 02/27/17 07:51 02/26/17 02/27/17 02/28/17 05:59 05:59 05:59 Intake Total 1600 Output Total 450 Balance 1150 - Physical Exam General Appearance: alert, no apparent distress EENT: other (left cheek/jaw line /neck still with swelling and indruation but improved from two days ago. less warmth. nontender. prevous neck drain site wiht mild drainage. drain out. ) Respiratory: lungs clear Cardiac/Chest: regular rate, rhythm Extremities: No swelling Abdomen: normal bowel sounds, non-tender, soft, No distended Skin: No erythema ICD10 Worksheet Patient Problems: Problems Problem Status Onset Dental abscess Acute Submandibular abscess Acute
--- NOTE | 2017-02-27 13:17 | GDS ---
[f rep st] DISCHARGE SUMMARY DISCHARGE DIAGNOSES: 1. Left submandibular abscess/odontogenic infection. 2. Homelessness. 3. Alcohol use. CONSULTATION DURING HIS STAY: Harpreet Johnson MD. and Dr. Coulter. HISTORY OF PRESENT ILLNESS: Briefly, the patient is a 46-year-old gentleman who is homeless who presented to the emergency room after he developed acute swelling left jaw and face with some drainage coming out. He was seen in the ER and given oral clindamycin, but did not improve. He went to [facility], but they sent him for further evaluation. He has not really complained of much pain. In the emergency room, a neck CT was done, which showed a 3.8 complex abscess just inferior to the mid mandible, continuous with a 1 cm abscess medial to the mid mandible. He was seen by the oral surgeon, who extracted #18 , #19, #20, and did I and D of the left submandibular and submental abscess. He improved nicely through the stay. He was treated with ertapenem. He will be discharged home on Augmentin. He will further follow up with oral surgeon if he should have any further issues. In addition, he has an appointment already set up with Dr. Johnson for followup care. HOSPITAL COURSE: 1. Left submandibular abscess status post I and D, much improved. 2. Homelessness. He said he lost his job, that is why he is homeless. 3. Alcohol use. No signs or symptoms of withdrawal. PENDING LABS AND TESTS: None. CONDITION AT DISCHARGE: Stable. Blood pressure is 107/79, O2 sats on room air 94%, respiratory rate 14, pulse 67, temperature 36.5 Celsius. DISCHARGE MEDICATIONS: Please see the EMR. DISCHARGE INSTRUCTIONS: 1. Follow up with Dr. Johnson. 2. Take the Augmentin b.i.d. for the next 14 days with plenty of water. 3. If he has fever, chills, worsening jaw pain, to return to the ER. Greater than 30 minutes discharging and coordinating care. /[id number]/MODL MTDD
--- NOTE | 2017-04-04 14:24 | GOP ---
[f rep st] OPERATIVE REPORT DATE OF OPERATION: 02/22/2017 SURGEON: David Coulter DDS PREOPERATIVE DIAGNOSIS: abscess and carious teeth POSTOPERATIVE DIAGNOSIS: abscess and carious teeth PROCEDURE PERFORMED: Extraction of teeth #18,19,20 and incision and drainage of a left submandibular space. FINDINGS: abscess from teeth 18, 19, 20 INDICATIONS: This is a gentleman who presented to the ER with rapid swelling of the left side of his jaw. A CT scan was obtained and an abscess was noted in his left submandibular space. He was worked up for a dental abscess. DESCRIPTION OF PROCEDURE: The patient was taken to the operating room, where he was induced under general anesthesia and prepped and draped in a standard oral and maxillofacial surgical fashion. Approximately 10 cc of 2% lidocaine was infiltrated intraorally. Teeth #18,19,20 were removed simply. Attention was then turned to the submandibular space, where a 1 cm stab incision was made at the point of maximum fluctuance. Purulent drainage was removed and sent off the table as a culture labeled neck abscess for anaerobic and aerobic cultures. A quarter-inch Rober drain was inserted and secured using a 3-0 silk suture. The patient was then taken out of general anesthesia and sent to the PACU in stable condition. There was 1 culture. There was 1 quarter-inch Blaine drain in the right submandibular space. He received approximately 500 cc of lactated Ringers. /[id number]/MODL MTDD
== END 2017-02-27 13:00 | disposition home or self-care (01) | DRG 137 ==
LOC: F3E 18:02 → OBSVTOIN 02-25 14:18
PROVIDERS: ADMIT Internal Medicine; ATTEND Internal Medicine
PROC: 0W9500Z Drainage of Lower Jaw with Drainage Device, Open Approach (ICD-10-PCS; principal; 2017-02-25)
PROC: 0CDXXZ1 Extraction of Lower Tooth, Multiple, External Approach (ICD-10-PCS; principal; 2017-02-25)
DX: K04.7 Periapical abscess without sinus (principal); K12.2 Cellulitis and abscess of mouth; L02.01 Cutaneous abscess of face; K02.9 Dental caries, unspecified; Z59.0 Homelessness; F17.210 Nicotine dependence, cigarettes, uncomplicated; Z72.89 Other problems related to lifestyle
CPT/HCPCS: 92526-GN; 92610-GN; 96365; G0378; J1100; J1335; J2250; J2405; J2704; J3010

== ENCOUNTER 2017-07-18 10:47 | Emergency (ER) | payer SELFPAY ==
--- NOTE | 2017-07-18 10:58 | EDPHY ---
H & P Time Seen by Provider: 07/18/17 10:47 HPI/ROS: CHIEF COMPLAINT: "I can't push my hernia back in" HISTORY OF PRESENT ILLNESS: 47-year-old homeless male arrives by ambulance, history of umbilical hernia states that he is normally able to reduce it himself however in the past 2 hours he has been unable to reduce it. He is complaining of localized pain No nausea or vomiting. Bowel movements normal. No abdominal trauma. No fever or chills. Passing gas as normal. No genitalia pain PRIMARY CARE PROVIDER:none REVIEW OF SYSTEMS: A ten point review of systems was performed and is negative with the exception of the items mentioned in the HPI PAST MEDICAL & SURGICAL HISTORY: Chronic umbilical hernia, has never had surgical consultation SOCIAL HISTORY: homeless PHYSICAL EXAM (Prior to examination, patient consented to physical exam, hands were washed and my usual and customary physical exam procedures followed) 1) GENERAL: Well-developed, well-nourished, alert and oriented. Appears to be in no acute distress. 2) HEAD: Normocephalic, atraumatic 3) HEENT: Pupils equal, round, reactive to light bilaterally. Sclera anicteric. 4) NECK: Full range of motion 5) LUNGS: Clear auscultation bilaterally. 6) HEART: Regular rate and rhythm, no murmur, no heave, no gallop. 7) ABDOMEN: guarding umbilicus, he has normal coloration, no erythema no ecchymosis, a palpable umbilical hernia is appreciated. I am able to reduce this using usual and customary technique. He feels immediate relief. negative McBurney's, negative Montes's, negative Rovsing's, negative peritoneal sign, 8) MUSCULOSKELETAL: Moving all extremities, no focal areas of tenderness, no obvious trauma. No peripheral edema or discoloration. 9) BACK: no obvious trauma, no visual or palpable abnormality. 10) SKIN: No rash, no petechiae. DIFFERENTIAL DIAGNOSIS: in no particular include but limited to umbilical hernia, strangulated hernia, incarcerated hernia Smoking Status: Heavy smoker Allergies/Adverse Reactions: No Known Allergies Allergy (Verified 02/24/17 12:11) Home Medications: Medication Instructions Recorded Acetaminophen [Tylenol 325mg (*)] 650 mg PO Q4HRS PRN #0 tab 02/27/17 Amoxicillin/Clavulanate Pot 875 mg PO BID #28 tab 02/27/17 [Augmentin 875 MG TAB (*)] Bacitracin Zinc [Bacitracin 1 kayla TP DAILY #1 ointtube 02/27/17 Ointment Tube 15 gm (OTC)] Ibuprofen [Motrin (*)] 400 mg PO Q4HRS PRN #0 tab 02/27/17 MDM/Departure - [facility] Procedures: Procedure: Reduction of umbilical hernia Using usual and customary technique I was able to reduce this patient's umbilical hernia. He feels immediate relief. ED Course/Re-evaluation: The patient was re-examined with serial examinations, I was able to reduce his hernia using usual customary technique. Doubt incarceration or strangulation. The patient will need non emergent surgical consultation at this was been an ongoing issue for him. I instructed him on how to reduce this himself. The case assembler has consulted and will arrange for outpatient follow-up with the [facility] as he has no primary care established and he will necessitate surgical consultation as well on a nonemergent basis. Usual and customary abdominal and hernia precautions provided by myself - Depart Disposition: Home, Routine, Self-Care Clinical Impression: Umbilical hernia Qualifiers: Obstruction and gangrene presence: without obstruction or gangrene Qualified Code(s): K42.9 - Umbilical hernia without obstruction or gangrene Condition: Good Instructions: Umbilical Hernia (ED) Additional Instructions: If you are unable to push the hernia back in, call 911 Referrals: Nasra Floyd MD [Medical Doctor] - 2-3 days, call for appt. [facility],. [Clinic] - 2-3 days, call for appt.
[2017-07-18 11:32] VITALS: BP 112/81; PULSE 60; RESP 18; TEMP 97.7; O2SAT 95
--- NOTE | 2017-07-18 11:50 | ASMTCMCOM ---
CM Note CM Note Notes: Met with patient and attempted to set up an appointment for patient at [facility]. Per Rosmery , patient was seen at the clinic a couple of years ago through their discount program but did not follow up with the process/payment. Patient's current Medicaid number is an "inactive" account and patient will need to have some insurance coverage in order to schedule an appointment. Patient has been given information regarding re application for Medicaid. He may also contact [facility] for assistance with the application process BUT they will not schedule an appointment for him until they can verify coverage. I have provided detailed instructions and contact information for the patient, including Medicaid, [facility]. I have also discussed and given him detailed information re [facility] "Path to Home" program and current opportunities at [facility] Date Signed: 07/18/2017 11:49 AM Electronically Signed By:Sara Pastrana RN
== END 2017-07-18 11:32 | disposition home or self-care (01) ==
LOC: EDUNIT#
DX: K42.9 Umbilical hernia without obstruction or gangrene (principal); F17.200 Nicotine dependence, unspecified, uncomplicated

== ENCOUNTER 2018-01-26 08:36 | Observation (INO) | payer MEDICAID ==
--- NOTE | 2018-01-26 09:11 | EDPHY ---
General - History Smoking Status: Heavy smoker Time Seen by Provider: 01/26/18 09:08 Narrative: CHIEF COMPLAINT: Hernia HISTORY OF PRESENT ILLNESS: Patient presents with complaints of hernia. He refers to a periumbilical hernia. This has been present for nearly 2 years. He says that he can typically "pushed back in when it pops out." With past 24 hr he has been unable to do so. He has increasing pain, nausea vomiting. He has not had a bowel movement in 24-48 hours. No fever. No chest pain. No shortness of breath. No trauma or injury. He was diagnosed with periumbilical hernia here nearly 2 years ago. He has not yet seen a surgeon for this. He has no primary care physician at this time. No other associated complaints or modifying factors. NPO of solids as of 8:00 p.m. Last night. He did drink some Powerade this morning. REVIEW OF SYSTEMS: Ten systems reviewed and are negative unless otherwise noted in the HPI PCP: Currently attempting to establish with [facility] SPECIALISTS: None PAST MEDICAL HISTORY: Dental abscess. Periumbilical hernia PAST SURGICAL HISTORY: Dental surgery SOCIAL HISTORY: Daily smoker. Occasional alcohol use. No drug use. Currently homeless FAMILY HISTORY: Noncontributory EXAMINATION General Appearance: Alert, no distress, unkempt. Head: normocephalic, atraumatic Eyes: Pupils equal and round, no conjunctival pallor or injection ENT, Mouth: Mucous membranes moist. Poor dentition. Neck: Normal inspection, supple, non-tender Respiratory: Lungs are clear to auscultation. No wheezing rhonchi or crackles Cardiovascular: Regular rate and rhythm. No murmur Gastrointestinal: Abdomen is soft and nondistended. There is a moderate sized periumbilical hernia that is easily palpated. Unable to be reduced. Neurological: A&O, nonfocal Skin: Warm and dry, no rash. No petechiae or purpura. Grossly intact Extremities: Nontender, no pedal edema Psychiatric: Mood and affect normal DIFFERENTIAL DIAGNOSES: Including but not limited to periumbilical hernia, incarcerated hernia, strangulated hernia MDM: 9:10 a.m. Periumbilical abdominal hernia that is very tender to palpation and I could not reduce this at bedside. His vitals are within normal limits. Was able to auscultate bowel sounds in the area of hernia. No necrosis of the skin. No obvious cellulitis or infection of the skin. I have ordered CT scan of the abdomen pelvis to delineate. 9:50 a.m. Notified by RN that the patient i-STAT reveals a potassium of 7.2. I suspect this is likely hemolysis due to normal creatinine. BMP has been ordered to verify his potassium level. 10:00 a.m. BMP the reveals a normal potassium. 10:25 a.m. Notified by radiologist Dr. Ware. There is incarcerated periumbilical hernia with bowel in it. There is edema of the bowel wall. Incidental note of bilateral hydroceles. I have ordered lactic acid at this time. 10:35 a.m. Case discussed with on-call general surgeon Dr. Rde. He will evaluate the patient emergency department. 11:[address] Red has evaluated the patient in the emergency department. He is reduce the hernia and plans to take the patient to the OR for surgical repair. Patient is admitted to his service in stable condition. Plans for surgical intervention this afternoon. He is admitted in stable condition, observation status SUPERVISION: Patient was evaluated and examined in conjunction with my secondary supervising physician as documented. We have both examined the patient. (Leo Cuellar) Medical Decision Making: PHYSICIAN DOCUMENTATION: The patient was evaluated and managed by the Physician Bleach Boiler Puller and myself. I have reviewed the chart and agree with the findings and plan of care as documented. In addition, I examined the patient myself at 1030. History confirmed as known chronic umbilical hernia but worsening pain today with 2 episodes of vomiting yesterday. Physical findings as follows: Patient has firm umbilical hernia which is tender to palpation. CT report reviewed, plan for surgical consultation. I am the secondary supervising physician. (Mickey Solares) - Diagnostics Imaging Results: Imaging Impressions Abdomen CT 01/26/18 09:15 Impression: 1. Small bowel containing periumbilical hernia with apparent obstruction and edema of small bowel distal to the obstruction, which could be related to ischemia or inflammation. 2. Small volume ascites. 3. Large bilateral hydroceles. 4. Nonobstructing nephrolithiasis. 5. Additional findings, as above. Findings discussed with Leo Cuellar PA-C on January 26, 2018 at 1029 hours. - Objective Vital Signs: Initial Vital Signs Temperature (C) 99.1 F 01/26/18 09:08 Heart Rate 79 01/26/18 09:08 Respiratory Rate 16 01/26/18 09:08 Blood Pressure 135/97 H 01/26/18 09:08 O2 Sat (%) 97 01/26/18 09:08 O2 Delivery Mode Room Air Allergies/Adverse Reactions: No Known Allergies Allergy (Verified 02/24/17 12:11) Home Medications: Medication Instructions Recorded Acetaminophen [Tylenol 325mg (*)] 650 mg PO Q4HRS PRN #0 tab 02/27/17 Laboratory Results: Laboratory Results 01/26/18 09:45 01/26/18 09:40 01/26/18 01/26/18 01/26/18 10:34 09:46 09:45 WBC 10.15 10^3/uL H 10^3/uL (3.80-9.50) RBC 5.68 10^6/uL 10^6/uL (4.40-6.38) Hgb 16.7 g/dL g/dL (13.7-17.5) POC Hgb 18.0 gm/dL H gm/dL (13.7-17.5) Hct 51.5 % H % (40.0-51.0) POC Hct 53 % H % (40-51) MCV 90.7 fL fL (81.5-99.8) MCH 29.4 pg pg (27.9-34.1) MCHC 32.4 g/dL g/dL (32.4-36.7) RDW 14.0 % % (11.5-15.2) Plt Count 234 10^3/uL 10^3/uL (150-400) MPV 10.8 fL fL (8.7-11.7) Neut % (Auto) 73.2 % % (39.3-74.2) Lymph % (Auto) 15.5 % % (15.0-45.0) [place] % (Auto) 9.5 % % (4.5-13.0) Eos % (Auto) 1.4 % % (0.6-7.6) Baso % (Auto) 0.2 % L % (0.3-1.7) Nucleat RBC Rel Count 0.0 % % (0.0-0.2) Absolute Neuts (auto) 7.44 10^3/uL H 10^3/uL (1.70-6.50) Absolute Lymphs (auto) 1.57 10^3/uL 10^3/uL (1.00-3.00) Absolute Monos (auto) 0.96 10^3/uL H 10^3/uL (0.30-0.80) Absolute Eos (auto) 0.14 10^3/uL 10^3/uL (0.03-0.40) Absolute Basos (auto) 0.02 10^3/uL 10^3/uL (0.02-0.10) Absolute Nucleated RBC 0.00 10^3/uL 10^3/uL (0-0.01) Immature Gran % 0.2 % % (0.0-1.1) Immature Gran # 0.02 10^3/uL 10^3/uL (0.00-0.10) ABG Lactic Acid 2.0 mmol/L H mmol/L (0.5-1.6) POC Sodium 138 mEq/L mEq/L (135-145) Sodium POC Potassium 7.2 mEq/L H* mEq/L (3.3-5.0) Potassium POC Chloride 100 mEq/L mEq/L (97-110) Chloride Carbon Dioxide Anion Gap POC BUN 12 mg/dL mg/dL (7-23) BUN Creatinine POC Creatinine 0.6 mg/dL L mg/dL (0.7-1.3) Estimated GFR Glucose POC Glucose 95 mg/dL mg/dL (70-100) Calcium Lipase 01/26/18 09:40 WBC RBC Hgb POC Hgb Hct POC Hct MCV MCH MCHC RDW Plt Count MPV Neut % (Auto) Lymph % (Auto) [place] % (Auto) Eos % (Auto) Baso % (Auto) Nucleat RBC Rel Count Absolute Neuts (auto) Absolute Lymphs (auto) Absolute Monos (auto) Absolute Eos (auto) Absolute Basos (auto) Absolute Nucleated RBC Immature Gran % Immature Gran # ABG Lactic Acid POC Sodium Sodium 142 mEq/L mEq/L (135-145) POC Potassium Potassium 4.6 mEq/L mEq/L (3.5-5.2) POC Chloride Chloride 99 mEq/L mEq/L (97-110) Carbon Dioxide 28 mEq/l mEq/l (22-31) Anion Gap 15 mEq/L mEq/L (8-16) POC BUN BUN 11 mg/dL mg/dL (7-23) Creatinine 0.6 mg/dL L mg/dL (0.7-1.3) POC Creatinine Estimated GFR > 60 Glucose 86 mg/dL mg/dL (70-100) POC Glucose Calcium 9.7 mg/dL mg/dL (8.5-10.4) Lipase 37 IU/L IU/L (23-300) Medications Given: Discontinued Medications Sodium Chloride (Ns) 1,000 mls @ 0 mls/hr IV EDNOW ONE; Wide Open PRN Reason: Protocol Stop: 01/26/18 09:17 Last Admin: 01/26/18 09:40 Dose: 1,000 mls Sodium Chloride (Ns) 1,000 mls @ 0 mls/hr IV EDNOW ONE; Wide Open PRN Reason: Protocol Stop: 01/26/18 11:29 Last Admin: 01/26/18 11:37 Dose: 1,000 mls Point of Care Test Results: 01/26/18 09:46 POC Sodium 138 POC Potassium 7.2 H* POC Chloride 100 POC BUN 12 POC Creatinine 0.6 L POC Glucose 95 Departure - Departure Disposition: [facility] Inpatient Acute Clinical Impression: Periumbilical hernia Condition: Good
[2018-01-26] MEDS ORDERED: NS 1,000 ML IV ONE ×2 (09:16→11:28)
[2018-01-26] MEDS ORDERED: IOPAMIDOL (ISOVUE-300) 100 ML BTL ONE (09:54)
[2018-01-26 10:06] LABS: PLATELET COUNT 234 10^3/uL (150-400)
[2018-01-26] MEDS ORDERED: BUPIVACAINE/EPI 0.5% 30 ML SDV ONE (12:05)
--- NOTE | 2018-01-26 12:11 | GCON ---
[f rep st] CONSULTATION DATE OF CONSULTATION: 01/26/2018 REFERRING PHYSICIAN: Leo Cuellar PA-C REASON FOR EVALUATION: Incarcerated hernia. HISTORY OF PRESENT ILLNESS: 47-year-old homeless male with a longstanding history of a previously reducible supraumbilical ventral hernia. He presents to the emergency room with a 1-day history of severe abdominal pain with an irreducible mass. He described nausea and vomiting two days prior to admission. He has been passing flatus. ED workup including CT imaging disclosed an incarcerated loop of small bowel. Surgery has been requested for further recommendations. PAST MEDICAL HISTORY: Denies. PAST SURGICAL HISTORY: Dental abscess drainage. MEDICATIONS: Denies. ALLERGIES: Denies. SOCIAL HISTORY: 2 beers per day. Daily tobacco. He is currently homeless. FAMILY HISTORY: Noncontributory. ROS: Negative 10 point review other than acute GI concerns only. PHYSICAL EXAMINATION: VITAL SIGNS: Temperature 37, blood pressure 120/70, pulse 82, respirations 16. GENERAL: The patient is mildly uncomfortable. The patient is alert, appropriate. HEART: Regular. LUNGS: Clear. ABDOMEN: Soft , tender, incarcerated supraumbilical ventral hernia. No other appreciable abdominal wall defects. EXTREMITIES: Without edema. NEUROLOGIC: Alert and appropriate x3. SKIN: Skin without lesions. LABORATORY STUDIES: White count 10, hemoglobin 18, platelets of 234. Electrolytes within reference range. IMAGING: CT images were directly reviewed on PACS, incarcerated small bowel with mild thickening. IMPRESSION: Incarcerated ventral hernia. The hernia was able to be reduced at bedside. Given the patient's social situation and longstanding history of hernia, will proceed with repair this afternoon. Risks and benefits were explained to the patient in detail, including bleeding, infection, recurrence, as well as bowel injury. The role of mesh and mesh infection were discussed as well. All questions were entertained. He desires to proceed. /[id number]/MODL MTDD
--- NOTE | 2018-01-26 12:31 | PDANEPAE ---
ANE History of Present Illness here for hernia repair ANE Past Medical History - Cardiovascular History Hx Hypertension: No Hx Arrhythmias: No Hx Chest Pain: No Hx Coronary Artery / Peripheral Vascular Disease: No Hx CHF / Valvular Disease: No Hx Palpitations: No - Pulmonary History Hx COPD: No Hx Asthma/Reactive Airway Disease: No Hx Recent Upper Respiratory Infection: No Hx Oxygen in Use at Home: No Hx Sleep Apnea: No - Endocrine History Hx Diabetes: No Hypothyroid: No Hyperthyroid: No Obesity: no - Renal History Hx Renal Disorders: No - Liver History Hx Hepatic Disorders: No - Neurological & Psychiatric Hx Hx Neurological and Psychiatric Disorders: No - Chronic Pain History Chronic Pain: No ANE Review of Systems Review of systems is: negative Review of Systems: - Exercise capacity Exercise capacity: >=4 METS ANE Patient History - Allergies Allergies/Adverse Reactions: No Known Allergies Allergy (Verified 02/24/17 12:11) - Home Medications Home medications: home medication list seen and reviewed - NPO status NPO Status: no food or drink >8 hours NPO Since - Liquids (Date): 01/26/18 NPO Since - Liquids (Time): 07:00 NPO Since - Solids (Date): 01/25/18 NPO Since - Solids (Time): 20:00 - Anes Hx Anes Hx: no prior problems - Smoking Hx Smoking Status: Current every day smoker - Alcohol Use Alcohol Use: None - Family Anes Hx Family Anes Hx: none ANE Labs/Vital Signs - Labs Result Diagrams: 01/26/18 09:45 01/26/18 09:40 - Vital Signs Vital Signs: reviewed preoperatively; see RN documention for details Blood Pressure: 122/70 Heart Rate: 82 Respiratory Rate: 16 O2 Sat (%): 94 Height: 170.18 cm Weight: 80.739 kg ANE Physical Exam - Airway Neck exam: FROM Mallampati Score: Class 1 - Pulmonary Pulmonary: no respiratory distress - Cardiovascular Cardiovascular: regular rate and rhythym - ASA Status ASA Status: II ANE Anesthesia Plan Anesthesia Plan: general endotracheal anesthesia
[2018-01-26] MEDS ORDERED: fentaNYL 100 MCG/2 ML INJ ONE (12:34)
[2018-01-26] MEDS ORDERED: PROPOFOL 200 MG/20 ML VIAL ONE (12:34)
--- NOTE | 2018-01-26 13:07 | ASMTCMCOM ---
CM Note CM Note Notes: Pt presented to the Emergency Room department with complaints of a hernia, nausea, vomiting. Surgery consulted, pt found to have an incarcerated ventral hernia requiring repair. Pt to surgery today. Per MD notes, pt is homeless. He has been attempting to establish care at the [facility], but does not have a PCP. Pt is a heavy smoker and he drinks approximately 2 beers/day. Discharge needs remain unclear at this time. Pt may benefit from alcohol resources and smoking cessation information. CM will continue to follow for any potential needs. Current Discharge Plan: To be determined Date Signed: 01/26/2018 01:06 PM Electronically Signed By:Drea Moss RN
[2018-01-26] MEDS ORDERED: HYDROCODONE/APAP 5/325 TAB PO PRN ×2 (13:33→13:41)
[2018-01-26] MEDS ORDERED: ACETAMINOPHEN 325 MG TAB PO PRN ×2 (13:33→13:36)
[2018-01-26] MEDS ORDERED: ONDANSETRON 4 MG/2 ML VIAL IVP PRN ×2 (13:33→13:41)
--- NOTE | 2018-01-26 13:33 | POSTOPPROG ---
Post Op Note Date of Operation: 01/26/18 Surgeon: Romain Red Anesthesiologist: Adam Zaman Anesthesia: GET(General Endotracheal) Pre-op Diagnosis: Incarcerated ventral hernia Post-op Diagnosis: Same Procedure: Incarcerated ventral hernia repair with 1.7" ventralux Inf/Abcess present in the surg proc area at time of surgery?: No EBL: Minimal
[2018-01-26] MEDS ORDERED: fentaNYL 100 MCG/2 ML INJ IVP PRN (13:41)
[2018-01-26] MEDS ORDERED: LR 500 ML IV PRN (13:41)
[2018-01-26] MEDS ORDERED: HYDROmorphONE/DILAUDID 1 MG/ML INJ IVP PRN (13:41)
[2018-01-26] MEDS ORDERED: oxyCODONE IR 5 MG TAB PO PRN (13:41)
[2018-01-26] MEDS ORDERED: NALOXONE HCL 0.4 MG/ML INJ IVP PRN (13:41)
[2018-01-26] MEDS ORDERED: LR 1,000 ML IV SCH (14:00)
[2018-01-26] MEDS ORDERED: HYDROmorphone HCL/NS 0.5 MG/ML SYR IVP PRN (14:30)
--- NOTE | 2018-01-26 16:06 | GOP ---
[f rep st] OPERATIVE REPORT DATE OF OPERATION: 01/26/2018 SURGEON: Romain Red MD ANESTHESIA: General. ANESTHESIOLOGIST: Adam Zaman MD PREOPERATIVE DIAGNOSIS: Incarcerated ventral hernia. POSTOPERATIVE DIAGNOSIS: Incarcerated ventral hernia. PROCEDURE PERFORMED: Incarcerated ventral hernia repair with 1.7 inch Ventralex mesh. INDICATIONS FOR SURGERY: 47-year-old male with history of a previously reducible ventral hernia, presents to the emergency room with small bowel incarceration today. He was able to be partially reduced immediately preop. He was taken to the operating room for hernia closure at this time. Risks and benefits were explained of bleeding, infection, hernia recurrence, bowel injury , as well as a role for mesh. All questions were answered. He desires to proceed. DESCRIPTION OF PROCEDURE: General anesthesia was induced. The abdomen was pre- injected with 0.5% Marcaine with epinephrine. A supraumbilical midline incision was created. A large, chronically thickened hernia sac was present with small bowel. The bowel was able to be reduced back into the abdominal cavity with gentle manipulation. The thickened sac was cleared back to healthy- appearing fascial edges. The edges were all freshened up. A 1.7 inch Ventralex mesh was inserted subfascially and the defect closed vertically with a running Vicryl suture incorporating the mesh into the closure. Satisfactory hemostasis was assured. The wound was closed in layers with Monocryl suture followed by Dermabond. The patient was taken to Recovery uneventfully. /[id number]/MODL MTDD
--- NOTE | 2018-01-26 16:41 | SOAPPROG ---
SOAP Progress Note Assessment/Plan: Assessment:no postop issues. min pain. no nausea. further questioning - no history of diarrhea, bloody diarrhea or crampy abd pain (SB thickening on CT). supportive care. dc in am . Plan: 01/26/18 16:40 Objective: Vital Signs Temp Pulse Resp BP Pulse Ox 36.9 C 81 16 107/73 98 01/26/18 14:28 01/26/18 16:32 01/26/18 16:32 01/26/18 16:32 01/26/18 16:32 01/25/18 01/26/18 01/27/18 05:59 05:59 05:59 Intake Total 700 Output Total 150 Balance 550 ICD10 Worksheet Patient Problems: Problems Problem Status Onset Periumbilical hernia Acute Dental abscess Acute Submandibular abscess Acute
--- NOTE | 2018-01-26 16:54 | ASMTCMCOM ---
CM Note CM Note Notes: Per dr Red, he would like to DC pt tomorrow and have him stay in a [facility] bed. CM to follow. Date Signed: 01/26/2018 04:54 PM Electronically Signed By:Deirdre Cadena LCSW
[2018-01-26] MEDS: KETOROLAC 15 MG/1 ML SDV IVP SCH (17:19)
[2018-01-27] MEDS: KETOROLAC 15 MG/1 ML SDV IVP SCH ×2 (00:42→05:25)
--- NOTE | 2018-01-27 07:52 | SOAPPROG ---
SOAP Progress Note Assessment/Plan: Assessment:no postop issues. no pain. no nausea. +flatus. avss. comfortable. abd soft. incis clean. doing well. dc today. cw to help with correction voucher for the evening. f/u 2 weeks if able Plan: 01/26/18 16:40 01/27/18 07:51 Objective: Vital Signs Temp Pulse Resp BP Pulse Ox 36.9 C 80 18 112/68 91 L 01/27/18 04:00 01/27/18 04:00 01/27/18 04:00 01/27/18 04:00 01/27/18 04:00 01/26/18 01/27/18 01/28/18 05:59 05:59 05:59 Intake Total 1600 Output Total 750 Balance 850 ICD10 Worksheet Patient Problems: Problems Problem Status Onset Periumbilical hernia Acute Dental abscess Acute Submandibular abscess Acute
[2018-01-27 08:43] VITALS: BP 104/69
--- NOTE | 2018-01-27 10:51 | ASDISCHSUM ---
Discharge Information Plan Status:Home with No Needs Medically Cleared to Leave:01/27/2018 Discharge Date:01/27/2018 CM D/C Disposition:Home, Routine, Self-Care ADT D/C Disposition:Home, Routine, Self-Care Projected Discharge Date:01/27/2018 Transportation at D/C:Bus Ticket Discharge Delay Reason: Follow-Up Date:01/27/2018 Discharge Slot: Final Diagnosis:Incarcerated ventral hernia, nausea, vomiting, pain Placement Information Patient Contact Information Contact Name:DARÍO Relationship: Address: Home Phone: Work Phone: City: Alternate Phone: State/[employer] Code: Email: Financial Information Financial Class:Medicaid Primary Plan Desc:[employer] [place] Primary Plan Number:[id number] Secondary Plan Desc: Secondary Plan Number: Assessment Information [facility] CM Progress Note CM Note CM Note Notes: Pt presented to the Emergency Room department with complaints of a hernia, nausea, vomiting. Surgery consulted, pt found to have an incarcerated ventral hernia requiring repair. Pt to surgery today. Per MD notes, pt is homeless. He has been attempting to establish care at the [facility], but does not have a PCP. Pt is a heavy smoker and he drinks approximately 2 beers/day. Discharge needs remain unclear at this time. Pt may benefit from alcohol resources and smoking cessation information. CM will continue to follow for any potential needs. Current Discharge Plan: To be determined Date Signed: 01/26/2018 01:06 PM Electronically Signed By:Drea Moss RN [facility] CM Progress Note CM Note CM Note Notes: Per dr Red, he would like to DC pt tomorrow and have him stay in a [facility] bed. CM to follow. Date Signed: 01/26/2018 04:54 PM Electronically Signed By:Deirdre Cadena LCSW Case Management Discharge Plan Note Case Management Discharge Discharge Order Complete? Answers: Yes Patient to Obtain Answers: Independently Medications Transportation Arranged Answers: Bus Tokens Discharge Comments Notes: Pt is discharging today. [facility] bed reserved - per [facility], pt has no TB test results on record. Because he hasn't been at the [facility] this season, he has 2 weeks from his first night to get a TB test. Pt declined to have TB test before [facility] d/c and will get it tomorrow when [facility] is at the [facility]. Bus pass provided. Date Signed: 01/27/2018 10:50 AM Electronically Signed By:GABINO Fofana Intervention Information
== END 2018-01-27 11:53 | disposition home or self-care (01) ==
LOC: EDUNIT# → INTOOBSV 10:44 → F3E 14:26
PROVIDERS: ADMIT Surgery; ATTEND Surgery
PROC: 0WUF0JZ Supplement Abdominal Wall with Synthetic Substitute, Open Approach (ICD-10-PCS; principal; 2018-01-26 12:30)
DX: K42.0 Umbilical hernia with obstruction, without gangrene (principal); E86.9 Volume depletion, unspecified; F17.210 Nicotine dependence, cigarettes, uncomplicated; N20.0 Calculus of kidney; N43.3 Hydrocele, unspecified; Z59.0 Homelessness
CPT/HCPCS: 49587; 74177; G0378; 82947-QW; C1781; J1885; J2704; J3010; Q9967